=== PATIENT | female | born 1955 | race Caucasian/White ===

== ENCOUNTER 2022-08-09 07:11 | Emergency (ER) | payer MEDICARE, OTHER ==
[~2022-08-09] VITALS: Ht 160 cm; Wt 72.7 kg
[2022-08-09 07:16] VITALS: BP 133/61
[2022-08-09] MEDS ORDERED: morphine 4 MG/ML inj SYRINge IV ONE (09:05)
[2022-08-09] MEDS ORDERED: LIDOcaine 1% 30ml preserv. free vial IJ ONE (09:05)
[2022-08-09] MEDS ORDERED: ketorolac trometh. 30mg/ml inj. IV ONE (09:05)
[2022-08-09] MEDS ORDERED: ondansetron/PF 4mg/2ml inj IV ONE (09:05)
[2022-08-09] MEDS ORDERED: ONDA4TAB12 PO (11:47)
[2022-08-09] MEDS ORDERED: HYDR-3965 PO (11:47)
[2022-08-09] MEDS ORDERED: IBUP-1985 PO (11:47)
[2022-08-09] MEDS ORDERED: HYDROcodone/acetaminophen 10/325mg tab PO ONE (11:55)
== END 2022-08-09 12:08 | disposition home or self-care (01) ==
LOC: ER 07:11
DX: S52.502A Unspecified fracture of the lower end of left radius, initial encounter for closed fracture (principal); E03.9 Hypothyroidism, unspecified; Z88.0 Allergy status to penicillin; Z88.2 Allergy status to sulfonamides; Z79.899 Other long term (current) drug therapy; W19.XXXA Unspecified fall, initial encounter; Y93.89 Activity, other specified; Y92.89 Other specified places as the place of occurrence of the external cause; Y99.8 Other external cause status
CPT/HCPCS: 25605; 73100; 96374; 96375; 99284; J1885; J2270; J2405; A4565; A6446; A6449